=== PATIENT | female | born 2005 | race Caucasian/White ===

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

== ENCOUNTER 2023-01-17 20:03 | Outpatient (CLI) | payer MEDICAID, SELFPAY ==
[2023-01-17 20:14] VITALS: BMI 29.7
[2023-01-17 20:23] VITALS: BP 122/75; PULSE 103; PULSE 113; O2SAT 98
[2023-01-17 20:24] VITALS: TEMP 36.6; O2SAT 99
[2023-01-17 21:03] LABS: Color, Urine Yellow (Yellow); Glucose, Dipstick Normal (Normal); Ketone-Dipstick Negative (Negative); Leukocyte Esterase-Dipstick 100 /ul (Negative); Nitrite-Dipstick Negative (Negative); Occult Blood-Urine Negative /ul (Negative); Protein-Dipstick Negative (Negative); Urine Bilirubin Dipstick Negative (Negative); Urine Clarity Clear (Clear); Urine Urobilinogen Normal (Normal)
[2023-01-17 21:04] LABS: Mucous, Urine 0 SEEN /hpf (<or=2+); Red Blood Cells-Urine 0 SEEN /hpf (0-5)
[2023-01-17 21:09] LABS: Bacteria RARE /hpf (None Seen); Squamous Epithelial Cells - UA 0-5 SEEN /hpf (5-10); White Blood Cells 0-5 SEEN /hpf (0-5)
[2023-01-17 21:27] LABS: ROM Internal Control Test YES-OK TO RESULT pt. (Internal QC); ROM Patient Test Negative (Negative); Record Kit Lot#, ROM+ K1374
[2023-01-17] MEDS: Lactated Ringers 1,000 ML 999 ML IV (21:30)
--- NOTE | 2023-01-17 21:56 | PN.OBGYN_ITS ---
Subjective Subjective 17-year-old at 34/0 weeks presenting with leaking of fluid and abdominal pain. Reports movement. Denies headache or vision changes, chest pain or shortness of breath, nausea or vomiting, vaginal bleeding. Objective Data Objective Data Vital Signs: Vital Signs Temp Pulse BP Pulse Ox 97.9 F 103 H 122/75 H 99 01/17/23 20:24 01/17/23 20:23 01/17/23 20:23 01/17/23 20:24 Weight: 71.5 kg Body Mass Index (BMI) 29.7 Lab / Micro Data Attestation: I reviewed the patient's lab results. Labs: Laboratory Results - last 24 hr 01/17/23 20:45: Urine Color Yellow, Urine Clarity Clear, Urine pH 8.0, Ur Specific [place] 1.010, Urine Protein Negative, Urine Glucose (UA) Normal, Urine Ketones Negative, Urine Occult Blood Negative, Urine Nitrite Negative, Urine Bilirubin Negative, Urine Urobilinogen Normal, Ur Leukocyte Esterase 100 H, Urine RBC 0 SEEN, Urine WBC 0-5 SEEN, Ur Squamous Epith Cells 0-5 SEEN, Urine Bacteria RARE, Urine Mucus 0 SEEN 01/17/23 20:45: Vag Amniotic Fld Detect Negative Physical Exam Const alert, oriented x3 and no apparent distress Constitutional Narrative: Patient in bed on her phone resting General Appearance: comfortable Resp normal respiratory effort Cardio regular rate GI soft to palpation, non-tender and non-distended Inspection: gravid Narrative: Closed/thick/high per RN Extremity full ROM and no pedal edema Neuro no focal motor deficits and no sensory deficits noted NST FHR Rate Baby A Baseline: 140 Variability:: Moderate Accelerations:: 15 x 15 Decelerations:: None NST Reactive:: Yes Uterine Activity:: Occasional on admission, resolved Assessment & Plan (1) : PLAN: 17-year-old at 34/0 weeks presenting with abdominal pain and leaking. ? ROM negative, not ruptured. ? Cervix closed, thick/high. Not in labor. Occasional contractions upon admission to triage resolved. Patient was given IV fluids. ? UA positive for leukocytes, no nitrites. Urine culture was sent. Will await results of this. ? Patient comfortable in bed resting upon my arrival to room. Discussed completing the rest of the IV fluid bag, then discharge home. Patient desired discharge home at that time, without completion of 1 L LR bolus. As patient is comfortable and feeling well, discharged home. Patient has an appointment on Monday in the office.
== END 2023-01-17 22:18 | disposition home or self-care (01) ==
LOC: WPOUT 20:12 → WP 20:13
PROVIDERS: Referring Provider Student in an Organized Health Care Education/Training Program; Visit Provider Student in an Organized Health Care Education/Training Program
DX: O47.03 False labor before 37 completed weeks of gestation, third trimester (principal); Z3A.34 34 weeks gestation of pregnancy
CPT/HCPCS: 59025; 59050; 81001; 84112; 87086; 87088; 99221; J7120; G0378

== ENCOUNTER 2023-01-30 12:45 | Outpatient (CLI) | payer MEDICAID, SELFPAY ==
[2023-01-30 13:04] VITALS: BP 116/72; PULSE 114; PULSE 180; TEMP 36.7; O2SAT 99
[2023-01-30 13:20] VITALS: BMI 29.5
[2023-01-30 14:13] LABS: ROM Internal Control Test YES-OK TO RESULT pt. (Internal QC); ROM Patient Test Negative (Negative); Record Kit Lot#, ROM+ K1374
--- NOTE | 2023-01-30 14:33 | OB.TRI.NOTE ---
HPI - General General Date of Service: 01/30/23 HPI Narrative HALEY CUEVA, is a 17 F who presents with pelvic pressure PFSH [facility] Medical History Anemia affecting Anxiety Depression Pre-eclampsia PTSD (post-traumatic stress disorder) Supervision of normal Home Medications aspirin 81 mg capsule 81 mg PO DAILY 01/30/23 [History Last Taken Unknown] njnrbthl-[id number] 1 mg tablet tab PO 01/30/23 [History Last Taken Unknown] Allergy/AdvReac Type Severity Reaction Status Date / Time Latex, Natural Rubber Allergy Hives Verified 01/17/23 20:31 Family History Other Bleeding disorder Breast cancer Surgical History Status post delivery Social History 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 Date Name GA/Weeks Outcome Route Bth Weight Infant Gen [facility]22 Jose 37 live - full term Female spinal [facility] Tanna Gonzalez unknown Delivery Date: 03/07/22 Last Updated by: Emily Crowder for failure to progress Physical Exam Const alert, oriented x3, no apparent distress, average body habitus, no limitations and healthy appearing HEENT moist oral mucous membranes Head and Scalp: normocephalic and atraumatic Eyes PERRL Neck full ROM Resp normal respiratory effort, no retractions and no use of accessory muscles Extremity normal to inspection and full ROM Neuro moves all extremities and no focal motor deficits Psych mental status grossly normal, affect normal, speech normal and activity/motor behavior normal NST FHR Rate Baby A Baseline: 130 Variability:: Moderate Accelerations:: 15 x 15 Decelerations:: None NST Reactive:: Yes Uterine Activity:: Quiet Assessment & Plan (1) : PLAN: Called by nursing patient arrived to triage with pelvic pressure along with GERD and leakage of fluid. Patient also notes photophobia. Reviewed patient's medical history with nursing including longstanding history of GERD currently being treated along with longstanding history of leakage of fluid this . Photophobia has been also chronic. Patient otherwise remains asymptomatic denies headache, chest pain, shortness of breath, nausea vomit, reported pain. Cervical exam per nursing closed no signs of labor, toco quiet. GERD currently being treated. Patient seen and examined discussed pelvic pressure and third trimester overall patient comfortable in bed and discussed third trimester remedies. Patient states understanding all questions answered. Okay to discharge home and follow-up at scheduled appointments
== END 2023-01-30 14:45 | disposition home or self-care (01) ==
LOC: WPOUT 12:50 → WP 12:51
PROVIDERS: Referring Provider Obstetrics & Gynecology; Visit Provider Obstetrics & Gynecology
DX: O99.891 Other specified diseases and conditions complicating pregnancy (principal); O99.330 Smoking (tobacco) complicating pregnancy, unspecified trimester; R10.2 Pelvic and perineal pain; F17.210 Nicotine dependence, cigarettes, uncomplicated; Z79.82 Long term (current) use of aspirin; Z3A.00 Weeks of gestation of pregnancy not specified
CPT/HCPCS: 59025; 59050; 84112

== ENCOUNTER → 2023-02-06 | Outpatient (CLI) | payer MEDICAID, SELFPAY ==
[2023-02-06 16:30] LABS: Absolute Lymphocyte Count 2.45 X10^3/uL (0.83-4.51); Absolute Neutrophil Count 5.7 X10^3/uL (2.0-7.7); Basophil# 0.03 X10^3/uL; Basophil% 0.3 % (0-1); Eosinophil# 0.07 X10^3/uL; Eosinophils% 0.8 % (0-5); Hematocrit 30.3 % (37-47); Hemoglobin 9.1 g/dL (12.0-15.0); Lymphocyte # 2.45 X10^3/ul (0.83-4.51); Lymphocyte % 27.9 % (19-41); Mean Corpuscular Hgb 24.2 pg (27.0-32.0); Mean Corpuscular Volume 80.6 fL (81-99); Mean Platelet Vol. 9.8 fl (6.2-12.0); Monocyte% 5.7 % (0-10); NRBC Flagged by Analyzer 0 % (0-5); Platelet Count 413 K/mm3 (150-450); RBC Distribution Width SD 41.1 fl (35.1-43.9); Red Blood Count 3.76 M/mm3 (4.2-5.4); White Blood Count 8.8 K/mm3 (4.4-11.0)
== END | disposition home or self-care (01) ==
LOC: WOBLAB 16:15
PROVIDERS: Visit Provider Student in an Organized Health Care Education/Training Program
DX: Z34.83 Encounter for supervision of other normal pregnancy, third trimester (principal)
CPT/HCPCS: 36415; 85025; 87077; 87081; 87186

== ENCOUNTER 2023-02-23 05:45 | Inpatient (IN) | payer MEDICAID, SELFPAY ==
[2023-02-23] VITALS (18 sets, daily range): BP systolic 101–123; BP diastolic 48–72; PULSE 53–91; RESP 14–20; TEMP 35.8–36.6; O2SAT 95–100; BMI 30.5
[2023-02-23] MEDS: Lactated Ringers 1,000 ML 999 ML IV (06:15)
[2023-02-23 06:27] LABS: Absolute Lymphocyte Count 2.96 X10^3/uL (0.83-4.51); Absolute Neutrophil Count 4.1 X10^3/uL (2.0-7.7); Basophil# 0.04 X10^3/uL; Basophil% 0.5 % (0-1); Eosinophil# 0.09 X10^3/uL; Eosinophils% 1.2 % (0-5); Hematocrit 29.3 % (37-47); Lymphocyte # 2.96 X10^3/ul (0.83-4.51); Lymphocyte % 38.7 % (19-41); Mean Corp Hgb Conc 30.7 g/dL (32-36); Mean Corpuscular Hgb 23.7 pg (27.0-32.0); Mean Corpuscular Volume 77.1 fL (81-99); Mean Platelet Vol. 10.2 fl (6.2-12.0); Monocyte% 5.2 % (0-10); NRBC Flagged by Analyzer 0 % (0-5); Neutrophil # 4.13 X10^3/uL (2.7-7.7); Neutrophil % 54.1 % (47-70); Platelet Count 398 K/mm3 (150-450); RBC Distribution Width CV 14.8 % (11.6-14.6); RBC Distribution Width SD 41.1 fl (35.1-43.9); White Blood Count 7.6 K/mm3 (4.4-11.0)
--- NOTE | 2023-02-23 06:37 | HP.PCM.OB_ITS ---
History and Physical Date of Admission: 02/23/23 HPI: 17-year-old at 39/2w, AUGUSTINE 02/28/2023 by first trimester ultrasound, admitted for repeat section and ParaGard placement. Denies regular contractions, leaking of fluid, vaginal bleeding. Reports movement. Denies headache or vision changes, chest pain or shortness of breath, nausea or vomiting, diarrhea constipation, fevers or chills. complicated by: Anemia, history of drug use, tobacco use, depression. Short interval . [employer] history: G1: 37-week section failure to progress G2: Current Medical history: 1. Depression 2. History of methamphetamine and marijuana use 3. Tobacco use Surgical history: 1. section Allergies: Latex Medications: 1. vitamin 2. Tums and Pepcid 3. Iron Family history: Denies history of blood clots or bleeding disorders, noncontributory Social history: Reports vaping, denies alcohol or drug use Review of system: Negative otherwise stated above Physical exam: Vitals: General: No acute distress HEENT: Normal cephalic/atraumatic, PERRLA Cardiorespiratory: No increased effort Abdomen: Soft, nontender, gravid Extremities: Minimal edema Neurologic: Cranial nerves II through XII grossly intact, no focal deficits Musculoskeletal: Strength 5 out of 5 throughout extremities, moves all extremities heart rate: 135/mod melba/+accel/no decel [place]:irregular Assessment/Plan: 17-year-old at 39/2w, AUGUSTINE 02/28/2023 by first trimester ultrasound, admitted for repeat section and ParaGard placement. complicated by: Anemia, history of drug use, tobacco use, depression. Short interval . ?Anemia. Monitor. Continue Iron. ?History of drug use, no current use. ?Placed ParaGard at time of section.
[2023-02-23] MEDS: Acetaminophen 500 MG Tablet 1000 MG PO ×3 (06:45→18:23)
[2023-02-23] MEDS: Sodium Citrate/Citric Acid 30 ML UDC PO (07:29)
[2023-02-23] MEDS: Lactated Ringers 1,000 ML 150 ML IV (07:31)
[2023-02-23] MEDS: Cefazolin 2 GM in 0.9% Normal Saline 100 ML IV (07:36)
[2023-02-23] MEDS: COPPER IUD 1 EACH INTRA-UTER (08:05)
[2023-02-23 08:24] LABS: Syphilis Antibodies Non-reactive
--- NOTE | 2023-02-23 08:25 | EX.PCM.OBRPT ---
Maternal Data Information Final AUGUSTINE: 02/28/23 Final AUGUSTINE Source: US <20 weeks Details Operative Information Date of Procedure: 02/23/23 Pre-Operative Diagnosis: Repeat section, desires long-acting reversible contraception Post-Operative Diagnosis: Repeat section, desires long-acting reversible contraception Indications Narrative: This is a 17-year-old female at 39/2 weeks, AUGUSTINE 02/28/2023 by first trimester ultrasound, admitted for repeat section ParaGard IUD placement. All risk, benefits, alternatives discussed with patient. Risks include but are not limited to: Risk of bleeding to the point transfusion, infection, injury to surrounding tissue including bowel/bladder potentially requiring prolonged Barrientos catheter use, VTE, ICU admission. Patient aware that there is a risk of expulsion of the ParaGard intrauterine device. If she were to become there is a risk of ectopic , she is instructed to notify provider immediately. Classification: Scheduled Procedure Type: low transverse (Paragard intrauterine device placement, lysis of adhesions. ) Antibiotic Given: Ancef 2 grams IV x1 Estimated Blood Loss: 700cc Fluids Replaced: 1000cc Findings Description of Procedure: Procedure: Patient taken to the operating room and spinal anesthesia placed. Patient placed in the supine position with left lateral tilt. Prepped and draped in usual sterile fashion. Pfannenstiel skin incision made with scalpel and carried down through subcutaneous tissue. Large amount of subcutaneous tissue adhesions. Fascia nicked on either side of the midline and extended bilaterally. Fascia also adhesed to the rectus muscles. Fascia grasped with Umm clamps at the superior and inferior fascial edges and underlying rectus muscles dissected off bluntly and sharply. Rectus muscle superiorly with hemostats and peritoneum grasped with hemostat. Incised with Metzenbaum scissors. Peritoneum entered. Peritoneal entry extended using Bovie and blunt dissection. Bladder blade placed. Thin lower uterine segment noted. Low transverse uterine incision made with scalpel and extended bluntly. Clear fluid. Hand placed in the uterine cavity and head elevated to the level of the hysterotomy. With the assistance of gentle fundal pressure head delivered follow-up body. No nuchal cord. Cord clamped and cut. Baby handed to nursing. Manual extraction of placenta. Uterus exteriorized and cleared of all clots. Hysterotomy closure started at the left edge. ParaGard intrauterine device inserted to the uterine fundus and strings placed in the cervix. Hysterotomy closure completed with a running stitch. Followed by a second vertical imbricating stitch. Hemostasis confirmed. Uterus replaced into the abdominal cavity, hysterotomy continued to be hemostatic. Omental adhesions noted to the superior peritoneum. Adhesions lysed of the lower edge of the omentum and right peritoneal edge, using Bovie. Peritoneum closed with a running stitch. Fascia closed with a running stitch. Incisional keloid grasped with Allis clamp and removed using scalpel. Subcutaneous tissue irrigated and then reapproximated with suture. Skin closed with a running subcuticular stitch. At the end of the procedure all needle, lap, sponge counts were correct. UOP: 100cc clear yellow urine A Gender: Male (1 minute): 9 (5 minute): 10 Complications Complications: None
[2023-02-23] MEDS: Oxytocin 15 Units/NS 250ml 15 UNITS/250 ML IV.SOLN 83 UNITS IV (08:50)
[2023-02-23] MEDS: Senna/Docusate Sodium 1 Tablet PO (09:30)
[2023-02-23] MEDS: Ketorolac 30 MG/ML Syringe IV ×3 (09:30→21:31)
[2023-02-23 10:24] LABS: Amphetamine Urine VISTA NEGATIVE (<1000 ng/mL); Barbiturate Urine VISTA NEGATIVE (< 200 ng/mL); Benzodiazepine Urine VISTA NEGATIVE (< 200 ng/mL); Cocaine Urine VISTA NEGATIVE (< 300 ng/mL); Ecstacy Urine VISTA NEGATIVE (< 500 ng/mL); Methadone Urine VISTA NEGATIVE (< 300 ng/mL); PCP Urine VISTA NEGATIVE (< 25 ng/mL); THC Urine VISTA NEGATIVE (< 50 ng/mL); Vista UDS pH Range 6
[2023-02-23] MEDS: Lactated Ringers 1,000 ML 100 ML IV (12:35)
[2023-02-23] MEDS: 0.9% Saline Lock 10 ML Syringe IV (15:47)
--- NOTE | 2023-02-23 18:58 | NURSING ---
1857-straight cathed for 1100 with latex free cath
--- NOTE | 2023-02-23 19:07 | NURSING ---
1700- pt feeling pressure to void declines wanting to be straight cathed, up to shower
[2023-02-23] MEDS: Enoxaparin 40 MG/0.4 ML Syringe SC (21:31)
[2023-02-23] MEDS: DiphenhydrAMINE 25 MG Capsule PO (23:14)
[2023-02-24] MEDS: Acetaminophen 500 MG Tablet 1000 MG PO ×3 (00:29→14:45)
[2023-02-24 00:32] VITALS: BP 114/54; PULSE 62; RESP 16; TEMP 36.8
[2023-02-24] MEDS: 0.9% Saline Lock 10 ML Syringe IV (03:47)
[2023-02-24] MEDS: Ketorolac 30 MG/ML Syringe IV (03:47)
[2023-02-24 03:48] VITALS: BP 109/49; PULSE 66; RESP 16; TEMP 36.8; O2SAT 97
[2023-02-24 05:52] LABS: Hematocrit 28.4 % (37-47); Hemoglobin 8.8 g/dL (12.0-15.0); Mean Corpuscular Hgb 24.2 pg (27.0-32.0); Mean Platelet Vol. 9.8 fl (6.2-12.0); Platelet Count 368 K/mm3 (150-450); RBC Distribution Width SD 42.4 fl (35.1-43.9); Red Blood Count 3.64 M/mm3 (4.2-5.4); White Blood Count 9.5 K/mm3 (4.4-11.0)
[2023-02-24 07:13] VITALS: O2SAT 97
--- NOTE | 2023-02-24 08:31 | PN.OBGYN_ITS ---
Subjective Subjective Patient feeling well. Pain controlled. Lochia minimal. Formula feeding. Objective Data Objective Data Vital Signs: Vital Signs Temp Pulse Resp BP Pulse Ox O2 Del Method 98.2 F 66 16 109/49 L 97 Room Air 02/24/23 03:48 02/24/23 03:48 02/24/23 03:48 02/24/23 03:48 02/24/23 07:13 02/24/23 07:13 Oxygen Delivery Method Room Air Weight: 73.3 kg Body Mass Index (BMI) 30.5 Intake & Output: Intake and Output for Last 24 Hours 02/22/23 02/23/23 02/24/23 23:59 23:59 23:59 Intake Total 3268.33 / 3268.33 Output Total 3500 / 3500 1000 / 1000 Balance -231.67 / -231.67 -1000 / -1000 Lab / Micro Data Attestation: I reviewed the patient's lab results. 02/24/23 05:35 Labs: Laboratory Results - last 24 hr 02/23/23 06:45: Urine Opiates Screen NEGATIVE, Urine Methadone Screen NEGATIVE, Ur Barbiturates Screen NEGATIVE, Ur Phencyclidine Scrn NEGATIVE, Ur Amphetamines Screen NEGATIVE, MDMA (Ecstasy) Screen NEGATIVE, U Benzodiazepines Scrn NEG ATIVE, Urine Cocaine Screen NEGATIVE, U Cannabinoids Screen NEGATIVE, Ur Drug Screen Comment 02/24/23 05:35: WBC 9.5, RBC 3.64 L, Hgb 8.8 L, Hct 28.4 L, MCV 78.0 L, MCH 24.2 L, MCHC 31.0 L, RDW Std Deviation 42.4, RDW Coeff of Ramiro 15.0 H, Plt Count 368, MPV 9.8 Physical Exam Const alert, oriented x3 and no apparent distress HEENT normocephalic Head and Scalp: atraumatic Neck full ROM Resp normal respiratory effort Cardio regular rate GI normal to inspection, nondistended, normoactive bowel sounds GI Narrative: Uterus 2 cm below umbilicus, dressing clean and dry Back/Spine normal ROM Extremity normal to inspection Extremity Narrative: Minimal pedal edema Neuro no focal motor deficits and no sensory deficits noted Psych mental status grossly normal and affect normal Assessment & Plan (1) Other acute postprocedural pain: PLAN: Post op day 1 repeat section and paragard placement. Doing well. Home today. Iron on home going.
--- NOTE | 2023-02-24 08:33 | DCINST_ITS ---
Discharge Instructions Diet Discharge Diet: No restrictions Activity Discharge Activity: May Not Drive (for 2 weeks or while taking narcotic pain medications.), May Shower and May Take a Tub Bath (in 7 days.) May resume sexual activity in: 4-6 weeks Weight Bearing Status: Full weight bearing Lifting Restrictions: 20 pounds Dressing / Incision Call your doctor if your incision/area has: Continuous Slow Oozing, Sudden Increased Bleeding, Increased Pain/ Swelling, Increased Redness and Foul Smelling Discharge Call your doctor if you observe: Fever of 101 or Higher and Using more than 1 pad per hour Suture Line Care: Avoid Pulling/Pushing and Avoid Pinching/Bending Cleanse incision/area with: Soap & Water and Keep Dressing Clean & Dry Follow Up Care Please Follow Up With: Jesenia Rubio DO When: 2 week post op check Test Results: Test results from this visit will be discussed in further detail at your follow- up appointment, if applicable. Discharge Plan Admission Admit Date/Time: 02/23/23 05:45 Primary Reason for Your Visit: Repeat section and IUD placement Attending Provider: Jesenia Rubio Primary Care Provider: Care Physician,Debbie Primary Discharge Orders/Prescriptions Prescriptions: New oxycodone 5 mg tablet 5 mg PO Q6H PRN (Reason: pain (scale score 7-10)) 4 Days Qty: 14 0RF Continued [id number] 1 mg Tablet 1 tab PO Discontinued aspirin 81 mg Capsule 81 mg PO DAILY Referrals / Follow Up: Care Physician,No Primary [Primary Care Provider] - Disposition Disposition (needs filled in before D/C Order can be placed): Home, Self Care
[2023-02-24 09:25] VITALS: BP 112/59; PULSE 65; RESP 18; TEMP 36.4
[2023-02-24] MEDS: Ibuprofen 600 MG Tablet PO ×2 (09:57→15:03)
[2023-02-24] MEDS: Senna/Docusate Sodium 1 Tablet PO (09:58)
[2023-02-24 13:00] VITALS: BP 116/45; PULSE 83; RESP 16; TEMP 36.4
[2023-02-24] MEDS: oxyCODONE 5 MG Tablet PO (15:04)
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
== END 2023-02-24 16:20 | disposition home or self-care (01) | DRG 540 ==
PROVIDERS: Admitting Provider Student in an Organized Health Care Education/Training Program; Visit Provider Student in an Organized Health Care Education/Training Program
PROC: 10D00Z1 Extraction of Products of Conception, Low, Open Approach (ICD-10-PCS; CPT 59514; principal; 2023-02-23 07:15)
DX: O34.219 Maternal care for unspecified type scar from previous cesarean delivery (principal); F17.290 Nicotine dependence, other tobacco product, uncomplicated; O99.02 Anemia complicating childbirth; O99.334 Smoking (tobacco) complicating childbirth; O99.892 Other specified diseases and conditions complicating childbirth; N73.6 Female pelvic peritoneal adhesions (postinfective); Z37.0 Single live birth; Z3A.39 39 weeks gestation of pregnancy; Z30.430 Encounter for insertion of intrauterine contraceptive device
CPT/HCPCS: 59025; 80307; 85025; 85027; 86780; 86850; 86900; 86901; 99221; 99252; J7120; A4216; G0378; G0463; J2405

== ENCOUNTER → 2025-04-17 | Outpatient (CLI) | payer MEDICAID, SELFPAY ==
[2025-04-17 16:58] LABS: Barbiturate Urine NEGATIVE (< 200 ng/mL); Benzodiazepine Urine NEGATIVE (< 200 ng/mL); PCP Urine NEGATIVE (< 25 ng/mL); THC Urine PRESUMPTIVE POSITIVE (< 50 ng/mL)
[2025-04-17 17:36] LABS: Creatinine, Urine (random) 231.00 mg/dL (28.00-217.00); Protein, Urine (Random) 18.1 mg/dL (0.0-12.0); Protein:Creat Ratio 78 mg/g CRE (0-200)
[2025-04-21 06:07] LABS: Chlamydia By Nucleic Acid AMP Negative (Negative); Gonococcus By Nucleic Acid AMP Negative (Negative)
== END | disposition home or self-care (01) ==
LOC: LABSPEC 15:09
PROVIDERS: Referring Provider Obstetrics & Gynecology; Visit Provider Obstetrics & Gynecology
DX: O09.90 Supervision of high risk pregnancy, unspecified, unspecified trimester (principal); F15.10 Other stimulant abuse, uncomplicated; O99.320 Drug use complicating pregnancy, unspecified trimester; F12.90 Cannabis use, unspecified, uncomplicated; Z3A.00 Weeks of gestation of pregnancy not specified
CPT/HCPCS: 80307; 82570; 84156; 87086; 87088; 87491; 87591

== ENCOUNTER → 2025-04-25 | Outpatient (CLI) | payer MEDICAID, SELFPAY ==
[2025-04-25 12:52] LABS: Hematocrit 37.9 % (37-47); Hemoglobin 12.7 g/dL (12.0-15.0); Immature Granulocytes Count 0.020 X10^3/uL (0.0-0.0); Mean Corp Hgb Conc 33.5 g/dL (32-36); Mean Corpuscular Volume 88.3 fL (81-99); Mean Platelet Vol. 9.5 fl (6.2-12.0); NRBC Flagged by Analyzer 0 % (0-5); Platelet Count 371 K/mm3 (150-450); RBC Distribution Width CV 12.6 % (11.6-14.6); RBC Distribution Width SD 41.0 fl (35.1-43.9); Red Blood Count 4.29 M/mm3 (4.2-5.4); White Blood Count 6.7 K/mm3 (4.4-11.0)
[2025-04-25 13:21] LABS: AST(SGOT) 12 U/L (<=31); Alanine Aminotransfer ALT/SGPT 9 U/L (<=34); Albumin, Serum 3.9 g/dL (3.5-5.0); Alkaline Phosphatase 49 U/L (35-104); Anion Gap 14 (5-15); BUN 6 mg/dL (4-19); BUN/Creat Ratio 10.2 RATIO (10-20); Calcium,Total 9.2 mg/dL (7.6-11.0); Carbon Dioxide 19.5 mmol/L (21.0-32.0); Chloride 104 mmol/L (98-108); Globulin 2.9 g/dL (2.2-4.2); Glucose 78 mg/dL (70-99); HIV Nonreactive (Nonreactive); Hepatitis B Surface Antigen Nonreactive (Nonreactive); Hepatitis C Antibody Nonreactive (Nonreactive); Potassium 3.6 mmol/L (3.3-5.1); Syphilis Antibodies Nonreactive (Nonreactive)
== END | disposition home or self-care (01) ==
LOC: BWCLAB 10:45
PROVIDERS: Referring Provider Obstetrics & Gynecology; Visit Provider Obstetrics & Gynecology
DX: O09.299 Supervision of pregnancy with other poor reproductive or obstetric history, unspecified trimester (principal); Z3A.00 Weeks of gestation of pregnancy not specified
CPT/HCPCS: 36415; 80053; 85025; 86703; 86762; 86780; 86803; 86850; 86900; 86901; 87340